=== PATIENT | male | born 1980 | race Caucasian/White ===

== ENCOUNTER 2019-07-31 04:18 | Emergency (ER) | payer OTHER ==
[~2019-07-31] VITALS: Ht 167.6 cm; Wt 100.7 kg
[2019-07-31 05:12] LABS: ABSOLUTE NEUTROPHILS 6.5 thou/uL (1.4-8.2); BASOPHILS 0.7 % (0.0-2.0); EOSINOPHILS 0.4 % (0.0-3.0); HEMATOCRIT 44.3 % (42.0-52.0); LYMPHOCYTES 6.9 % (24.0-44.0); MCH 29.5 pg (26.0-34.0); MCHC 33.8 g/dL (28.0-37.0); MCV 87.3 fL (80.0-100.0); MONOCYTES 11.4 % (1.0-8.0); PLATELET COUNT 259 thou/uL (150-400); POLYS 80.6 % (36.0-66.0); RBC 5.07 mil/uL (4.50-6.00); RDW 13.3 % (10.5-14.5)
[2019-07-31 05:25] LABS: CALCIUM 9.1 mg/dL (8.5-10.1); CREATININE 1.1 mg/dL (0.7-1.3); POTASSIUM 4.2 mmol/L (3.5-5.1)
[2019-07-31 06:13] LABS: URINE BILIRUBIN NEGATIVE (Negative); URINE BLOOD TRACE (Negative); URINE CLARITY CLEAR; URINE COLOR YELLOW; URINE GLUCOSE-RANDOM* NEGATIVE (Negative); URINE KETONES NEGATIVE (Negative); URINE LEUKOCYTES-REFLEX NEGATIVE (Negative); URINE NITRITE-REFLEX NEGATIVE (Negative); URINE PROTEIN (DIPSTICK) NEGATIVE (Negative); URINE SPECIFIC GRAVITY 1.015 (1.005-1.035); URINE UROBILINOGEN 0.2 E.U./dl (0.2-1.0)
[2019-07-31 06:35] LABS: AMP/METHAMP Negative (Negative); BARBITURATES Negative (Negative); BENZODIAZEPINES Negative (Negative); COCAINE Negative (Negative); METHADONE Negative (Negative); OPIATES Negative (Negative); PCP Negative (Negative)
[2019-07-31 06:43] LABS: DIRECT BILIRUBIN 0.1 mg/dL (<0.1-0.3); TOTAL BILIRUBIN 0.4 mg/dL (<0.1-1.0); TOTAL PROTEIN 8.2 g/dL (6.4-8.2)
[2019-07-31] MEDS ORDERED: ONDANSETRON ODT8 MG PO (06:58)
[2019-07-31] MEDS ORDERED: NAPROSYN500 MG PO (06:58)
[2019-07-31 07:57] VITALS: BP 129/84
== END 2019-07-31 07:57 | disposition home or self-care (01) ==
LOC: ER 04:18
PROVIDERS: Emergency Medicine
DX: B34.9 Viral infection, unspecified (principal); R51 Headache; R11.2 Nausea with vomiting, unspecified; R10.9 Unspecified abdominal pain